=== PATIENT | male | born 1935 | race Caucasian/White ===

== ENCOUNTER → 2019-10-14 09:14 | Outpatient (BNVA) | payer MEDICARE, SELFPAY | PROVIDERS: Family Provider Family Medicine; PCP Family Medicine; Visit Provider Family Medicine | DX: Z01.89 Encounter for other specified special examinations (principal) | CPT/HCPCS: 36415; 85025 ==

== ENCOUNTER 2019-11-02 10:25 | Outpatient (CLI) | payer MEDICARE, SELFPAY | END 2019-11-02 10:26 | disposition home or self-care (01) | LOC: ONCMED 10:30 | PROVIDERS: Family Provider Family Medicine; PCP Family Medicine; Visit Provider Internal Medicine Hematology & Oncology | DX: D69.6 Thrombocytopenia, unspecified (principal); D61.818 Other pancytopenia | CPT/HCPCS: G0463 ==

== ENCOUNTER 2019-12-09 10:55 | Outpatient (CLI) | payer MEDICARE, SELFPAY ==
[2019-12-09 11:46] LABS: Basophils % 0.7 %; Eosinophils # 0.1 10^3/uL (0.0-0.8); Eosinophils % 2.6 %; Hematocrit 43.6 % (42.0-52.0); Hemoglobin 13.2 g/dL (11.7-16.6); Lymphocytes # 1.2 10^3/uL (0.8-4.8); Lymphocytes % 25.5 %; Mean Corpuscular HGB Conc 30.3 g/dL (30.0-36.0); Mean Corpuscular Hemoglobin 27.7 pg (28.0-34.0); Mean Corpuscular Volume 91.4 fL (80-94); Mean Platelet Volume 12.3 fL (7.4-10.4); Monocytes # 0.5 10^3/uL (0.2-0.9); Monocytes % 11.1 %; Neutrophils # 2.7 10^3/uL (1.8-7.7); Neutrophils % 59.9 %; Nucleated Red Blood Cells % 0 %; Platelet Count 80 10^3/cmm (130-400); Red Blood Count 4.77 10^6/uL (4.1-5.3); Red Cell Distribution Width 14.1 % (12.1-15.1); White Blood Count 4.6 10^3/uL (4.0-10.0)
--- NOTE | 2019-12-09 13:43 | ONC FU_ITS ---
Dr. Hooker follow up note Patient: Ministerio Dukes Unit #: [id number]: 1935 Dicatated By: Patsy Hooker M.D.Date of Visit:Dec 09, 2019 Onc Med Follow-up/Prog Note History of Present Illness: Mr. Ministerio Dukes, is a 83-year-old gentleman with recent history of thrombocytopenia his CBC from April 21 to showed white blood count 3.9, platelet count was not performed because of significant clumping noticed but manual count was more than 30,000 hemoglobin was 13.7 hematocrit 42.4 MCV 87.1, B12 903, folate 21.5, TIA was negative Patient denies any history of petechiae but old healing ecchymosis involving upper extremities. No history of nosebleed, no history of melena or hematochezia, no hemoptysis or hematemesis. No jaundice. Patient denies alcohol use, used to drink but quit 15 years ago, denies smoking. Abdominal sonogram done on 06/22/2019 showed no splenomegaly next Copper level within normal limits, folic acid 13.7, B12 716, TIA negative Came for follow-up, denies any specific complaints, denies any melena hematochezia denies any nausea vomiting, denies any petechiae or ecchymosis denies any abdominal fullness, denies any lymphadenopathy denies any night sweats or recurrent fever. Medications: Lisinopril 1 Tablet (of 10 mg) Oral daily, Lovastatin 1 Tablet (of 10 mg) Oral daily, Magnesium 1 Capsule (of 400 mg) Oral daily, metFORMIN HCl 2 Tablet (of 500 mg) Oral b.i.d., Multivitamin Adult 1 Tablet Oral daily, Verapamil HCl ER 1 Tablet (of 240 mg) Tablet, controlled release Oral daily, vision 1 Capsule daily Allergies: No Known Allergies. Review of Systems: Constitutional - Appetite is good and weight is stable. No fever, chills, hot flashes, or night sweats. Energy level is good, ENMT - No sinus congestion/drainage. No mouth sores. No sore throat or difficulty swallowing, Hematologic/Lymphatic - Pt reports easy bruising/bleeding, Respiratory - No shortness of breath. No cough. No pleuritic pain or hemoptysis, Cardiovascular - No angina pain. No palpitations, Gastrointestinal - No nausea or vomiting. No heartburn or acid reflux. No diarrhea or constipation. No blood in the stool or black stools, Genitourinary (M) - No dysuria or hematuria. No urinary frequency. No urgency or incontinence, Musculoskeletal - No joint or bone pain, Neurologic - No headache or dizziness. No numbness/paresthesias or other focal neurologic symptoms, Psychiatric - No anxiety or depression. No insomnia. Vital Signs: Performed on Dec 09, 2019 12:38 Height - 69.00 in Weight - 207.8 lbs (LOW) BSA - 2.10 sq.m BMI - 30.69 (HIGH) Temperature - 98.0 F (LOW) Pulse - 74 /min Respiration - 17 /min BP - 116/68 mm(hg) O2 Sat - 94 % (LOW) Pain - 0 Performance Status: 0 - Fully active, able to carry on all predisease activities without restrictions. (ECOG) Physical Examination: ENMT - No oral exudates, ulcers, masses, thrush or mucositis. Oropharynx clear. Tongue normal, Respiratory - Lungs are clear to auscultation without rhonchi or wheezing, Cardiovascular - Regular rate and rhythm of heart, Abdomen - Non-tender, non-distended, Good bowel sounds. No guarding or rebound tenderness. No pulsatile masses, Extremities - no edema. Lab/Imaging: Test performed on Oct 14, 2019 09:14 WBC 4.5 10^9/L RBC 4.82 10^12/L HGB 13.6 g/dL HCT 41.4 % MCV 85.9 fl MCH 28.3 pg MCHC 33.0 g/dL RDW 16.1 % Platelet Count 65 10^9/L MPV 9.7 fL Neutrophils (Gran) 2.9 10^9/L Lymphocytes 1.3 10^9/L Monocytes 0.3 10^9/L Manual Lymphocytes 28.8 % Manual Monocytes 6.9 % Test performed on Sep 09, 2019 09:51 Neutrophil % 70.9 % Lymphocyte % 23.1 % Monocyte % 6.0 % Test performed on Jul 27, 2019 09:40 Folate, Serum 13.7 ng/mL Vitamin B12 716 pg/mL TIA NEGATIVE TIA IFA is a first line screen for detecting the presence of up to approximately 150 autoantibodies in various autoimmune diseases. A negative TIA IFA result suggests an TIA-associated autoimmune disease is not present at this time, but is not definitive. If there is high clinical suspicion for Sjogren's syndrome, testing for anti-SS-A/Ro antibody should be considered. Anti-Jessy-1 antibody should be considered for clinically suspected inflammatory myopathies. AC-0: Negative International Consensus on TIA Patterns (https://doi.org/10.1515/lyeb-7616-8580) For additional information, please refer to http://education.[employer]/faq/QIB443 (This link is being provided for informational/ educational purposes only.) THIS TEST WAS PERFORMED AT: [email or web address] [facility] [address] [place] [address] MADELAINE FLORES DO,MPH Test performed on Jul 23, 2019 09:10 Eosinophils 0.1 10 3/cmm Basophils 0.0 10 3/cmm Eosinophil % 2.7 % Basophils % 0.5 % Impression: Mild pancytopenia with mild to moderate thrombocytopenia, etiology unclear, could be multifactorial including medication induced especially TONY inhibitor e.g. lisinopril, considering his age underlying myelodysplasia cannot be ruled out. Or low-grade ITP. US Abdomen Done on 07/23/2019 Showed No Splenomegaly, Stable Septated Liver Cyst. Plan: Discussed with patient regarding his labs white blood count 4.6 Imodium 13.2 crit 42.6 platelets 80,000 compared to 65,000 on 10/14/2019 Clinically, patient is doing well with no signs symptoms suggestive gross bleeding, his follow-up lab shows normal hemoglobin and resolution of leukopenia but persistent, stable moderate thrombocytopenia now with some improvement. We'll continue to monitor he will return to clinic in 2 months with CBC and also check serum protein electrophoresis. Signed By: Patsy Hooker M.D. <<Signature on File>>
== END 2019-12-09 10:56 | disposition home or self-care (01) ==
LOC: ONCMED 10:59
PROVIDERS: Family Provider Family Medicine; PCP Family Medicine; Visit Provider Internal Medicine Hematology & Oncology
DX: D69.6 Thrombocytopenia, unspecified (principal); Z79.84 Long term (current) use of oral hypoglycemic drugs
CPT/HCPCS: 85025; G0463

== ENCOUNTER → 2020-02-29 09:16 | Outpatient (BNVA) | payer MEDICARE, SELFPAY | PROVIDERS: Family Provider Family Medicine; PCP Family Medicine; Visit Provider Internal Medicine Hematology & Oncology | DX: D61.818 Other pancytopenia (principal) | CPT/HCPCS: 85025 ==

== ENCOUNTER 2020-03-02 07:58 | Outpatient (CLI) | payer MEDICARE, SELFPAY ==
--- NOTE | 2020-03-02 14:55 | ONC FU_ITS ---
Dr. Hooker follow up note Patient: Ministerio Dukes Unit #: [id number]: 1935 Dicatated By: Patsy Hooker M.D.Date of Visit:Mar 02, 2020 Onc Med Follow-up/Prog Note History of Present Illness: Mr. Ministerio Dukes, is a 84-year-old gentleman with recent history of thrombocytopenia his CBC from April 21 to showed white blood count 3.9, platelet count was not performed because of significant clumping noticed but manual count was more than 30,000 hemoglobin was 13.7 hematocrit 42.4 MCV 87.1, B12 903, folate 21.5, TIA was negative Patient denies any history of petechiae but old healing ecchymosis involving upper extremities. No history of nosebleed, no history of melena or hematochezia, no hemoptysis or hematemesis. No jaundice. Patient denies alcohol use, used to drink but quit 15 years ago, denies smoking. Abdominal sonogram done on 06/22/2019 showed no splenomegaly next Copper level within normal limits, folic acid 13.7, B12 716, TIA negative Came for follow-up, denies any specific complaints, no nausea or vomiting, no diarrhea constipation, no nosebleed or gum bleed, no melena or hematochezia, no petechia but old healing ecchymosis involving upper extremities mostly due to trauma. Otherwise no evidence of gross bleeding Medications: Lisinopril 1 Tablet (of 10 mg) Oral daily, Lovastatin 1 Tablet (of 10 mg) Oral daily, Magnesium 1 Capsule (of 400 mg) Oral daily, metFORMIN HCl 2 Tablet (of 500 mg) Oral b.i.d., Multivitamin Adult 1 Tablet Oral daily, Verapamil HCl ER 1 Tablet (of 240 mg) Tablet, controlled release Oral daily, vision 1 Capsule daily Allergies: No Known Allergies. Review of Systems: Constitutional - Appetite is good and weight is stable. No fever, chills, hot flashes, or night sweats. Energy level is very good, ENMT - No sinus congestion/drainage. No mouth sores. No sore throat or difficulty swallowing, Hematologic/Lymphatic - Pt reports easy bruising, Respiratory - No shortness of breath. No cough. No pleuritic pain or hemoptysis, Cardiovascular - No angina pain. No palpitations, Gastrointestinal - No nausea or vomiting. No heartburn or acid reflux. No diarrhea or constipation. No blood in the stool or black stools, Genitourinary (M) - No dysuria or hematuria. No urinary frequency. No urgency or incontinence, Musculoskeletal - No joint or bone pain, Neurologic - No headache or dizziness. No numbness/paresthesias or other focal neurologic symptoms, Psychiatric - No anxiety or depression. No insomnia. Vital Signs: Performed on Mar 02, 2020 08:08 Height - 69.00 in Weight - 205.6 lbs (LOW) BSA - 2.09 sq.m BMI - 30.36 (HIGH) Temperature - 98.0 F (LOW) Pulse - 16 /min (LOW) Respiration - 16 /min BP - 105/63 mm(hg) O2 Sat - 95 % (LOW) Pain - 0 Performance Status: 0 - Fully active, able to carry on all predisease activities without restrictions. (ECOG) Physical Examination: ENMT - no mouth sores, no thrush, no jaundice, Respiratory - Lungs are clear, Cardiovascular - Regular rate and rhythm of heart, Abdomen - soft, bowel sounds present, Extremities - no visible edema. Lab/Imaging: Test performed on Feb 29, 2020 09:16 WBC 3.4 10^9/L RBC 5.04 10^12/L HGB 13.6 g/dL HCT 41.1 % MCV 81.5 fl MCH 27.0 pg MCHC 33.2 g/dL RDW 17.3 % Platelet Count 68 10^9/L MPV 10.3 fL Neutrophils (Gran) 2.4 10^9/L Lymphocytes 0.8 10^9/L Monocytes 0.1 10^9/L Manual Lymphocytes 24.8 % Manual Monocytes 3.7 % Test performed on Dec 09, 2019 11:15 Eosinophils 0.1 10 3/uL Basophils 0.0 10 3/uL Neutrophil % 59.9 % Lymphocyte % 25.5 % Monocyte % 11.1 % Eosinophil % 2.6 % Basophils % 0.7 % Impression: Mild pancytopenia with mild to moderate thrombocytopenia, etiology unclear, could be multifactorial including medication induced especially TONY inhibitor e.g. lisinopril, considering his age underlying myelodysplasia cannot be ruled out. Or low-grade ITP. US Abdomen Done on 07/23/2019 Showed No Splenomegaly, Stable Septated Liver Cyst. Plan: Discussed with patient regarding his labs white blood count 3.4 hemoglobin 13.6 crit 41.1 platelets 68,000, serum protein electrophoresis is pending Clinically, patient is doing well with no evidence of gross bleeding to check his follow-up blood counts shows mild leukopenia with mild/moderate chemotherapy but normal hemoglobin. Discussed with patient regarding the role of bone marrow evaluation, patient prefer observation as there is no evidence of gross bleeding and hemoglobin is stable and platelets level is fluctuating. In that case we'll see him back in 3 months with CBC and Signed By: Patsy Hooker M.D. <<Signature on File>>
== END 2020-03-02 07:59 | disposition home or self-care (01) ==
LOC: ONCMED 08:01
PROVIDERS: Family Provider Family Medicine; PCP Family Medicine; Visit Provider Internal Medicine Hematology & Oncology
DX: D61.818 Other pancytopenia (principal); D69.6 Thrombocytopenia, unspecified; I10 Essential (primary) hypertension; E11.42 Type 2 diabetes mellitus with diabetic polyneuropathy; H40.9 Unspecified glaucoma; H35.30 Unspecified macular degeneration
CPT/HCPCS: G0463

== ENCOUNTER → 2020-07-04 09:17 | Outpatient (BNVA) | payer MEDICARE, SELFPAY | PROVIDERS: Family Provider Family Medicine; PCP Family Medicine; Visit Provider Internal Medicine Hematology & Oncology | DX: D61.818 Other pancytopenia (principal) | CPT/HCPCS: 85025 ==

== ENCOUNTER → 2020-07-25 08:38 | Outpatient (BNVA) | payer MEDICARE, SELFPAY | PROVIDERS: Family Provider Family Medicine; PCP Family Medicine; Visit Provider Nurse Practitioner Family | DX: D69.6 Thrombocytopenia, unspecified (principal) | CPT/HCPCS: 85025 ==

== ENCOUNTER 2020-07-27 12:37 | Outpatient (CLI) | payer MEDICARE, SELFPAY ==
--- NOTE | 2020-07-27 13:15 | ONC FU_ITS ---
Dr. Hooker follow up note Patient: Ministerio Dukes Unit #: [id number]: 1935 Dicatated By: Patsy Hooker M.D.Date of Visit:Jul 27, 2020 Onc Med Follow-up/Prog Note History of Present Illness: Mr. Ministerio Dukes, is a 84-year-old gentleman with recent history of thrombocytopenia his CBC from April 21 to showed white blood count 3.9, platelet count was not performed because of significant clumping noticed but manual count was more than 30,000 hemoglobin was 13.7 hematocrit 42.4 MCV 87.1, B12 903, folate 21.5, TIA was negative Patient denies any history of petechiae but old healing ecchymosis involving upper extremities. No history of nosebleed, no history of melena or hematochezia, no hemoptysis or hematemesis. No jaundice. Patient denies alcohol use, used to drink but quit 15 years ago, denies smoking. Abdominal sonogram done on 06/22/2019 showed no splenomegaly next Copper level within normal limits, folic acid 13.7, B12 716, TIA negative Came for follow-up, denies any specific complaints, no fever chills, no nausea or vomiting, no diarrhea or constipation, no melena or hematochezia no nosebleeds or gum bleed no petechia or ecchymosis no hematuria. Medications: Lisinopril 1 Tablet (of 10 mg) Oral daily, Lovastatin 1 Tablet (of 10 mg) Oral daily, Magnesium 1 Capsule (of 400 mg) Oral daily, metFORMIN HCl 2 Tablet (of 500 mg) Oral b.i.d., Multivitamin Adult 1 Tablet Oral daily, Verapamil HCl ER 1 Tablet (of 240 mg) Tablet, controlled release Oral daily, vision 1 Capsule daily Allergies: No Known Allergies. Review of Systems: Constitutional - Appetite is good and weight is stable. No fever, chills, hot flashes, or night sweats. Energy level is very good, ENMT - No sinus congestion/drainage. No mouth sores. No sore throat or difficulty swallowing, Hematologic/Lymphatic - Pt reports easy bruising, Respiratory - No shortness of breath. No cough. No pleuritic pain or hemoptysis, Cardiovascular - No angina pain. No palpitations, Gastrointestinal - No nausea or vomiting. No heartburn or acid reflux. No diarrhea or constipation. No blood in the stool or black stools, Genitourinary (M) - No dysuria or hematuria. No urinary frequency. No urgency or incontinence, Musculoskeletal - No joint or bone pain, Neurologic - No headache or dizziness. No numbness/paresthesias or other focal neurologic symptoms, Psychiatric - No anxiety or depression. No insomnia. Vital Signs: Performed on Jul 27, 2020 12:53 Height - 69.00 in Weight - 207.2 lbs (HIGH) BSA - 2.10 sq.m BMI - 30.60 (HIGH) Temperature - 98.5 F Pulse - 78 /min Respiration - 19 /min BP - 136/68 mm(hg) O2 Sat - 97 % Pain - 0 Performance Status: 0 - Fully active, able to carry on all predisease activities without restrictions. (ECOG) Physical Examination: ENMT - No mouth sores, no thrush, noJaundice, Respiratory - Lungs are clear to auscultation, Cardiovascular - Regular rate and rhythm of heart, Abdomen - Soft, bowel sounds present, Extremities - No visible edema. Lab/Imaging: Test performed on Jul 04, 2020 09:17 WBC 4.4 10^9/L RBC 4.98 10^12/L HGB 14.8 g/dL HCT 43.6 % MCV 87.5 fl MCH 29.7 pg MCHC 33.9 g/dL RDW 14.9 % Platelet Count 72 10^9/L MPV 9.4 fL Lymphocytes 1.0956 10^9/L Monocytes 0.2288 10^9/L Test performed on Feb 29, 2020 09:16 Neutrophils (Gran) 2.4 10^9/L Manual Lymphocytes 24.8 % Manual Monocytes 3.7 % Impression: Mild pancytopenia with mild to moderate thrombocytopenia, etiology unclear, could be multifactorial including medication induced especially TONY inhibitor e.g. lisinopril, considering his age underlying myelodysplasia cannot be ruled out. Or low-grade ITP. US Abdomen Done on 07/23/2019 Showed No Splenomegaly, Stable Septated Liver Cyst. Plan: Discussed with patient regarding his labs white blood count 4.3 hemoglobin 14.7 hematocrit 44.3 platelets 72,000 compared to 72,000 on July 04, 2020 and 68,000 on February 29, 2020 Clinically, patient is doing well with no new signs symptoms no evidence of gross bleeding his follow-up labs shows persistent mild/moderate isolated thrombocytopenia with normal hemoglobin and white blood count., Etiology still unclear, considering his age could be due to underlying myelodysplasia or mild ITP, discussed about bone marrow evaluation, again today but patient and his would rather prefer observation unless platelet count started going down further or any evidence of gross bleeding. Patient return to clinic in 4 months with CBC and will also consider manual count Signed By: Patsy Hooker M.D. <<Signature on File>>
== END 2020-07-27 12:38 | disposition home or self-care (01) ==
LOC: ONCMED 12:41
PROVIDERS: PCP Family Medicine; Visit Provider Internal Medicine Hematology & Oncology
DX: D61.818 Other pancytopenia (principal); D69.6 Thrombocytopenia, unspecified
CPT/HCPCS: G0463

== ENCOUNTER → 2020-11-23 10:26 | Outpatient (BNVA) | payer MEDICARE, SELFPAY | PROVIDERS: PCP Family Medicine; Visit Provider Internal Medicine Hematology & Oncology | DX: D69.6 Thrombocytopenia, unspecified (principal) | CPT/HCPCS: 85025 ==

== ENCOUNTER 2020-11-24 12:17 | Outpatient (CLI) | payer MEDICARE, SELFPAY ==
--- NOTE | 2020-11-24 15:07 | ONC FU_ITS ---
Dr. Hooker follow up note Patient: Ministerio Dukes Unit #: [id number]: 1935 Dicatated By: Patsy Hooker M.D.Date of Visit:Nov 24, 2020 Onc Med Follow-up/Prog Note History of Present Illness: Mr. Ministerio Dukes, is a 84-year-old gentleman with recent history of thrombocytopenia his CBC from April 21 to showed white blood count 3.9, platelet count was not performed because of significant clumping noticed but manual count was more than 30,000 hemoglobin was 13.7 hematocrit 42.4 MCV 87.1, B12 903, folate 21.5, TIA was negative Patient denies any history of petechiae but old healing ecchymosis involving upper extremities. No history of nosebleed, no history of melena or hematochezia, no hemoptysis or hematemesis. No jaundice. Patient denies alcohol use, used to drink but quit 15 years ago, denies smoking. Abdominal sonogram done on 06/22/2019 showed no splenomegaly next Copper level within normal limits, folic acid 13.7, B12 716, TIA negative Came for follow-up, denies any specific complaints, except recovering from flulike symptoms, denies any Covid infection or testing, no fever chills, no nausea or vomiting, no diarrhea or constipation, no melena or hematochezia, no hemoptysis or hematemesis, no petechia or ecchymosis, no night sweats, no weight loss, no recurrent infections. No peripheral lymphadenopathy or abdominal fullness Medications: Lisinopril 1 Tablet (of 10 mg) Oral daily, Lovastatin 1 Tablet (of 10 mg) Oral daily, Magnesium 1 Capsule (of 400 mg) Oral daily, metFORMIN HCl 2 Tablet (of 500 mg) Oral b.i.d., Multivitamin Adult 1 Tablet Oral daily, Verapamil HCl ER 1 Tablet (of 240 mg) Tablet, controlled release Oral daily, vision 1 Capsule daily Allergies: No Known Allergies. Review of Systems: Review of Systems is not available for this patient. Vital Signs: Performed on Nov 24, 2020 12:40 Height - 69.00 in Weight - 203 lbs (LOW) BSA - 2.08 sq.m BMI - 29.98 Temperature - 97.7 F (LOW) Pulse - 77 /min Respiration - 17 /min BP - 125/71 mm(hg) O2 Sat - 97 % Pain - 0 Performance Status: 0 - Fully active, able to carry on all predisease activities without restrictions. (ECOG) Physical Examination: ENMT - No mouth sores, no thrush, no jaundice, Respiratory - Lungs are clear to auscultation, Cardiovascular - Regular rate and rhythm of heart, Abdomen - Soft, Bowel sounds present, Extremities - No visible edema. Lab/Imaging: Test performed on Nov 23, 2020 10:26 WBC 4.5 10^9/L RBC 4.93 10^12/L HGB 14.9 g/dL HCT 44.0 % MCV 89.2 fl MCH 30.2 pg MCHC 33.8 g/dL RDW 14.7 % Platelet Count 79 10^9/L MPV 8.9 fL Neutrophils (Gran) 1.0 10^9/L Lymphocytes 0.4 10^9/L Manual Lymphocytes 22.6 % Manual Monocytes 8.5 % Manual Eosinophils 3.1 % Test performed on Jul 25, 2020 16:14 Monocytes 0.2 10^9/L Impression: Mild pancytopenia with mild to moderate thrombocytopenia, etiology unclear, could be multifactorial including medication induced especially TONY inhibitor e.g. lisinopril, considering his age underlying myelodysplasia cannot be ruled out. Or low-grade ITP. US Abdomen Done on 07/23/2019 Showed No Splenomegaly, Stable Septated Liver Cyst. Plan: Discussed with patient regarding his labs white blood count 4.5 hemoglobin 14.9 hematocrit 44 platelets 79,000 ANC 1000, compared to 2800 on July 25, 2020, lymphocytes 400 Clinically, patient is doing well with no new signs symptoms except now recovering from flulike symptoms. His follow-up labs shows persistent mild/moderate thrombocytopenia but stable, white blood count in normal range but drop in absolute neutrophil count as well as lymphocytes, etiology unclear could be due to recent flulike symptoms, now patient is not symptomatic or no sign of infection., Will monitor him and this time he will return to clinic in 1 month with CBC with differential with special attention to neutrophil count. Patient was advised in case there is a fever or any sign of infection he need to call us otherwise return to clinic in 1 month as mentioned above. Signed By: Patsy Hooker M.D. <<Signature on File>>
== END 2020-11-24 12:18 | disposition home or self-care (01) ==
LOC: ONCMED 12:21
PROVIDERS: PCP Family Medicine; Visit Provider Internal Medicine Hematology & Oncology
DX: D69.6 Thrombocytopenia, unspecified (principal); D61.818 Other pancytopenia; D70.9 Neutropenia, unspecified
CPT/HCPCS: G0463

== ENCOUNTER → 2020-12-20 08:57 | Outpatient (BNVA) | payer MEDICARE, SELFPAY | PROVIDERS: PCP Family Medicine; Visit Provider Internal Medicine Hematology & Oncology | DX: D69.6 Thrombocytopenia, unspecified (principal) | CPT/HCPCS: 85007; 85027 ==

== ENCOUNTER 2020-12-22 09:52 | Outpatient (CLI) | payer MEDICARE, SELFPAY ==
--- NOTE | 2021-01-02 21:21 | ONC FU_ITS ---
[facility] Patient Note Patient: Ministerio Dukes Unit #: [id number]: 1935 Dictated By: Susu De LeonDate of Visit: Dec 22, 2020 Onc MED Follow-Up/Prog Note Chief Complaint: Mild pancytopenia History of Present Illness: Mr. Dukes is an 85-year-old gentleman with a history of thrombocytopenia. His CBC from April 21, 2019 showed a white blood count of 3.9, platelet count was not performed because of significant clumping noticed but manual count was more than 30,000 and his hemoglobin was 13.7 hematocrit 42.4 MCV 87.1, B12 903, folate 21.5, TIA was negative. He denies any history of petechiae but old healing ecchymosis involving upper extremities. No history of nosebleed, no history of melena or hematochezia, no hemoptysis or hematemesis. No jaundice. Patient denies alcohol use, used to drink but quit 15 years ago, denies smoking. Abdominal sonogram done on 06/22/2019 showed no splenomegaly. His followup labs included Copper level was within normal limits, folic acid 13.7, B12 716, TIA negative. Mr Dukes is following with Dr Hooker for the pancytopenia. He has been asymptomatic and has not had any weight loss, night sweats, nausea or vomiting. He denies any evidence of bleeding such as melena or hematochezia, hemoptysis or hematemesis. He denies petechia or ecchymosis. No peripheral lymphadenopathy or abdominal fullness. He has remained on observation. His last labs on November 23, 2020 reported a platelet count of 79,000 his hemoglobin was 14.9 and WBC was 4.5. His absolute neutrophil count at that time was 1000. His lymphocytes were reported at 22.6%. Mr. Dukes is here today for follow-up and lab review from his labs from December 20, 2020. He reports overall he is doing great . He has no complaints. He denies any new concerns. He denies any fever or chills. He has had no signs of infection. He denies cough or hemoptysis. He denies any weight loss. He states his appetite is good and his energy is fair. He denies any shortness of breath orthopnea. He denies any chest pain or palpitations. He denies any abdominal pain, diarrhea or constipation. He states his urinary patterns are normal for him. He has had no hematuria. He denies any bruising. He states that he gets occasional bruise but no worse than what it always has been. He has had no pepito bleeding. He denies any headaches or vision changes. He has had no TIA type symptoms. His ECOG is 0. Past Medical History: Glaucoma Hypertension Macular degeneration Peripheral neuropathy Type II diabetes Past Surgical History: Cholecystectomy Allergies: No Known Allergies. Medications: Lisinopril 1 Tablet (of 10 mg) Oral daily Lovastatin 1 Tablet (of 10 mg) Oral daily Magnesium 1 Capsule (of 400 mg) Oral daily metFORMIN HCl 2 Tablet (of 500 mg) Oral b.i.d. Multivitamin Adult 1 Tablet Oral daily Verapamil HCl ER 1 Tablet (of 240 mg) Tablet, controlled release Oral daily vision 1 Capsule daily Family History: Mr. Dukes's mother at age 80: type II diabetes. Mr. Dukes's father at age 72: alcoholic cirrhosis. Mr. Dukes has 1 sister who is alive: uterine cancer. Social History: Mr. Dukes is and he is retired. Mr. Dukes quit smoking 26 years ago but had smoked 0.5 packs/day for 40 years. He has no history of drinking. Mr. Dukes reports the following support systems: lives with spouse, significant other, family, or friends, lives in own house, supportive family/friends willing to assist with needs, and adequate transportation available for expected visits. His diet consists of regular meals. He indicates his activity level as: regular exercise. Vital Signs: Performed on Dec 22, 2020 10:02 Height - 69.00 in Weight - 204.2 lbs (HIGH) BSA - 2.08 sq.m BMI - 30.16 (HIGH) Temperature - 97.8 F (LOW) Pulse - 70 /min Respiration - 18 /min BP - 147/71 mm(hg) (HIGH) O2 Sat - 96 % Pain - 0,0 - Fully active, able to carry on all predisease activities without restrictions. (ECOG) Physical Examination: Constitutional Alert, oriented, no acute distress. Skin pink, warm and dry. Head Normocephalic; atraumatic. Eyes Conjunctivae and sclerae are clear and without icterus. Pupils are reactive and equal. Neck Supple without masses or thyromegaly. No jugular venous distension. Hematologic/Lymphatic No petechiae or purpura. No tender or palpable lymph nodes in the cervical or supraclavicular areas. Respiratory Lungs are clear to auscultation without rhonchi or wheezing. Cardiovascular Regular rate and rhythm of heart without murmurs,clicks, gallops or rubs. Abdomen Non-tender, non-distended, no masses or ascites. Back/Spine Non-tender to palpation. Extremities No visible deformities, no cyanosis, clubbing or edema. Musculoskeletal No tenderness or swelling, normal range of motion without obvious weakness. Integumentary No rashes or lesions. Neurologic No sensory or motor deficits, normal cerebellar function, normal gait. Psychiatric Alert and oriented times three. Coherent speech. Verbalizes understanding of our discussions today. Laboratory:Test performed on Dec 20, 2020 08:57 WBC 3.8 10^9/L RBC 4.98 10^12/L HGB 15.1 g/dL HCT 46.0 % MCV 92.4 fl MCH 30.3 pg MCHC 32.8 g/dL RDW 13.7 % Platelet Count 60 10^9/L MPV 12.9 fL Neutrophils (Gran) 2.3 10^9/L Lymphocytes 0.0 10^9/L Monocytes 0.0 10^9/L Eosinophils 0.0 10^9/L Basophils 0.0 10^9/L Manual Lymphocytes 31 % Manual Monocytes 6.0 % Manual Eosinophils 1 % Manual Basophils 0.0 % Impression: Mild pancytopenia with mild to moderate thrombocytopenia, etiology unclear, could be multifactorial including medication induced especially TONY inhibitor e.g. lisinopril, considering his age underlying myelodysplasia cannot be ruled out. Or low-grade ITP. US Abdomen Done on 07/23/2019 Showed No Splenomegaly, Stable Septated Liver Cyst. Plan: PROBLEMS ADDRESSED TODAY 1. Mild pancytopenia with moderate thrombocytopenia and neutropenia A. Labs from December 20, 2020 were reviewed in detail and discussed with Mr. Dukes and a copy was given to him. WBC 3.8, hemoglobin 15.1, platelets 60,000 ANC is 2300. His lymphocytes were reported at 31%. He is afebrile and his weight is stable at 204. B. He continues on observation. He has had no symptoms of infection or recurrent fever, chills. He did have recent flulike symptoms at his last visit but that has resolved. C. We have discussed his platelet count of 60,000. It was 68,000 in February 2020. He has had no bleeding or worsening of bruising. 2. Follow-up plan A. We will plan to see him back in 1 month with CBC CMP B. Mr. Dukes has been instructed to call us if he has any worsening of the bruising, any bleeding, signs of infection such as fever, chills, productive cough, abnormal nasal discharge, urinary frequency or burning or anything that makes him feel that he is getting an infection. His neutropenia has improved from his last check in October 2020 at which time was 1000???it is 2300 today. C. Mr. Dukes was instructed to contact us in interim should questions or problems arise. Signed By: Susu De Leon-, AOCNP Patsy Hooker MD <<Signature on File>>
== END 2020-12-22 09:53 | disposition home or self-care (01) ==
LOC: ONCMED 09:55
PROVIDERS: PCP Family Medicine; Visit Provider Nurse Practitioner
DX: D61.818 Other pancytopenia (principal); D69.6 Thrombocytopenia, unspecified; D70.9 Neutropenia, unspecified
CPT/HCPCS: 99214

== ENCOUNTER → 2021-01-23 09:10 | Outpatient (BNVA) | payer MEDICARE, SELFPAY | PROVIDERS: PCP Family Medicine; Visit Provider Nurse Practitioner | DX: D61.818 Other pancytopenia (principal); D69.6 Thrombocytopenia, unspecified | CPT/HCPCS: 80053; 85025 ==

== ENCOUNTER 2021-01-25 08:48 | Outpatient (CLI) | payer MEDICARE, SELFPAY ==
--- NOTE | 2021-01-25 10:29 | ONC FU_ITS ---
Dr. Hooker follow up note Patient: Ministerio Dukes Unit #: [id number]: 1935 Dicatated By: Patsy Hooker M.D.Date of Visit:Jan 25, 2021 Onc Med Follow-up/Prog Note History of Present Illness: Mr. Dukes is an 85-year-old gentleman with a history of thrombocytopenia. His CBC from April 21, 2019 showed a white blood count of 3.9, platelet count was not performed because of significant clumping noticed but manual count was more than 30,000 and his hemoglobin was 13.7 hematocrit 42.4 MCV 87.1, B12 903, folate 21.5, TIA was negative. He denies any history of petechiae but old healing ecchymosis involving upper extremities. No history of nosebleed, no history of melena or hematochezia, no hemoptysis or hematemesis. No jaundice. Patient denies alcohol use, used to drink but quit 15 years ago, denies smoking. Abdominal sonogram done on 06/22/2019 showed no splenomegaly. His followup labs included Copper level was within normal limits, folic acid 13.7, B12 716, TIA negative. Mr Dukes is following with Dr Hooker for the pancytopenia. He has been asymptomatic and has not had any weight loss, night sweats, nausea or vomiting. He denies any evidence of bleeding such as melena or hematochezia, hemoptysis or hematemesis. He denies petechia or ecchymosis. No peripheral lymphadenopathy or abdominal fullness. He has remained on observation. His last labs on November 23, 2020 reported a platelet count of 79,000 his hemoglobin was 14.9 and WBC was 4.5. His absolute neutrophil count at that time was 1000. His lymphocytes were reported at 22.6%. Came for follow-up, denies any specific complaints, no fever chills, no nausea or vomiting, no diarrhea or constipation, no melena or hematochezia, no nosebleed or gum bleeding, no dysuria or hematuria, no petechia or ecchymosis Medications: Lisinopril 1 Tablet (of 10 mg) Oral daily, Lovastatin 1 Tablet (of 10 mg) Oral daily, Magnesium 1 Capsule (of 400 mg) Oral daily, metFORMIN HCl 2 Tablet (of 500 mg) Oral b.i.d., Multivitamin Adult 1 Tablet Oral daily, Verapamil HCl ER 1 Tablet (of 240 mg) Tablet, controlled release Oral daily, vision 1 Capsule daily Allergies: No Known Allergies. Review of Systems: Review of Systems is not available for this patient. Vital Signs: Performed on Jan 25, 2021 09:56 Height - 69.00 in Weight - 202.0 lbs (LOW) BSA - 2.07 sq.m BMI - 29.83 Temperature - 97.5 F (LOW) Pulse - 75 /min Respiration - 18 /min BP - 118/68 mm(hg) O2 Sat - 94 % (LOW) Pain - 0 Performance Status: 0 - Fully active, able to carry on all predisease activities without restrictions. (ECOG) Physical Examination: ENMT - No mouth sores, no thrush, no jaundice, Respiratory - Lungs are clear to auscultation, Cardiovascular - Regular rate and rhythm of heart, Abdomen - Soft, bowel sounds present, Extremities - No visible edema. Lab/Imaging: Test performed on Jan 23, 2021 09:10 Glucose 297 mg/dL BUN 10 mg/dL Creatinine 0.8 mg/dL Cr Clearance (Est) 90.05 mL/min Sodium 137 mmol/L Potassium 4.9 mmol/L Chloride 98 mmol/L CO2 30 mmol/L Calcium 8.5 mg/dL Protein, Total 6.6 g/dL Albumin 4.0 g/dL Globulin 2.6 g/dL Bilirubin, Total 0.7 mg/dL Alkaline Phosphatase 93 IU/L AST (SGOT) 28 IU/L ALT (SGPT) 32 IU/L WBC 4.4 10^9/L RBC 4.93 10^12/L HGB 14.9 g/dL HCT 44.4 % MCV 90.1 fl MCH 30.2 pg MCHC 33.5 g/dL RDW 13.9 % Platelet Count 77 10^9/L MPV 9.4 fL Neutrophils (Gran) 3.0 10^9/L Lymphocytes 1.2 10^9/L Monocytes 0.2 10^9/L Manual Lymphocytes 28.1 % Manual Monocytes 4.5 % Test performed on Dec 20, 2020 08:57 Eosinophils 0.0 10^9/L Basophils 0.0 10^9/L Manual Eosinophils 1 % Manual Basophils 0.0 % Impression: Mild pancytopenia with mild to moderate thrombocytopenia, etiology unclear, could be multifactorial including medication induced especially TONY inhibitor e.g. lisinopril, considering his age underlying myelodysplasia cannot be ruled out. Or low-grade ITP. US Abdomen Done on 07/23/2019 Showed No Splenomegaly, Stable Septated Liver Cyst. Plan: Discussed with patient regarding his labs white blood count 4.4 hemoglobin 14.9 hematocrit 44.4 platelets 77,000 compared to 60,000 previously neutrophil count has improved to 3000 from 2300 previously Clinically, patient doing well with no new signs symptoms his follow-up labs shows mild neutropenia/leukopenia has resolved but persistent but improving mild/moderate thrombocytopenia with no evidence of gross bleeding, hemoglobin is normal range. Discussed with patient and regarding etiology of his persistent mild isolated thrombocytopenia which could be due to low grade ITP orMedications, considering his age underlying myelodysplasia cannot be ruled out, bone marrow evaluation may be helpful but patient and would prefer observation alone at this time. So he will return to clinic in 3 months with CBC Signed By: Patsy Hooker M.D. <<Signature on File>>
== END 2021-01-25 08:49 | disposition home or self-care (01) ==
PROVIDERS: PCP Family Medicine; Visit Provider Internal Medicine Hematology & Oncology
DX: D61.818 Other pancytopenia (principal); D69.6 Thrombocytopenia, unspecified; K76.0 Fatty (change of) liver, not elsewhere classified; Z79.899 Other long term (current) drug therapy
CPT/HCPCS: 99214

== ENCOUNTER → 2021-04-24 10:38 | Outpatient (BNVA) | payer MEDICARE, SELFPAY | PROVIDERS: PCP Family Medicine; Visit Provider Internal Medicine Hematology & Oncology | DX: D61.818 Other pancytopenia (principal); D69.6 Thrombocytopenia, unspecified | CPT/HCPCS: 85025 ==

== ENCOUNTER 2021-04-26 10:26 | Outpatient (CLI) | payer MEDICARE, SELFPAY ==
--- NOTE | 2021-04-26 11:31 | ONC FU_ITS ---
Dr. Hooker follow up note Patient: Ministerio Dukes Unit #: [id number]: 1935 Dicatated By: Patsy Hooker M.D.Date of Visit:Apr 26, 2021 Onc Med Follow-up/Prog Note History of Present Illness: Mr. Dukes is an 85-year-old gentleman with a history of thrombocytopenia. His CBC from April 21, 2019 showed a white blood count of 3.9, platelet count was not performed because of significant clumping noticed but manual count was more than 30,000 and his hemoglobin was 13.7 hematocrit 42.4 MCV 87.1, B12 903, folate 21.5, TIA was negative. He denies any history of petechiae but old healing ecchymosis involving upper extremities. No history of nosebleed, no history of melena or hematochezia, no hemoptysis or hematemesis. No jaundice. Patient denies alcohol use, used to drink but quit 15 years ago, denies smoking. Abdominal sonogram done on 06/22/2019 showed no splenomegaly. His followup labs included Copper level was within normal limits, folic acid 13.7, B12 716, TIA negative. He has been asymptomatic and has not had any weight loss, night sweats, nausea or vomiting. He denies any evidence of bleeding such as melena or hematochezia, hemoptysis or hematemesis. He denies petechia or ecchymosis. No peripheral lymphadenopathy or abdominal fullness. He has remained on observation. His last labs on November 23, 2020 reported a platelet count of 79,000 his hemoglobin was 14.9 and WBC was 4.5. His absolute neutrophil count at that time was 1000. His lymphocytes were reported at 22.6%. Came for follow-up, denies any specific complaints, no fever chills, no nausea or vomiting, no diarrhea or constipation, no night sweats, or weight loss or recurrent fever no petechia or ecchymosis, no nosebleed or gum bleed, no hematuria, Medications: Lisinopril 1 Tablet (of 10 mg) Oral daily, Lovastatin 1 Tablet (of 10 mg) Oral daily, Magnesium 1 Capsule (of 400 mg) Oral daily, metFORMIN HCl 2 Tablet (of 500 mg) Oral b.i.d., Multivitamin Adult 1 Tablet Oral daily, Verapamil HCl ER 1 Tablet (of 240 mg) Tablet, controlled release Oral daily, vision 1 Capsule daily Allergies: No Known Allergies. Review of Systems: Review of Systems is not available for this patient. Vital Signs: Performed on Apr 26, 2021 10:30 Height - 69.00 in Weight - 202.6 lbs (HIGH) BSA - 2.08 sq.m BMI - 29.92 Temperature - 98.0 F (LOW) Pulse - 73 /min Respiration - 18 /min BP - 112/68 mm(hg) O2 Sat - 98 % Pain - 0 Performance Status: 0 - Fully active, able to carry on all predisease activities without restrictions. (ECOG) Physical Examination: ENMT - No mouth sores, no thrush, no jaundice, Respiratory - Lungs are clear to auscultation, Cardiovascular - Regular rate and rhythm of heart, Abdomen - Soft, bowel sounds present, Extremities - No visible edema. Lab/Imaging: Test performed on Apr 24, 2021 10:38 WBC 4.8 10^3/uL RBC 4.80 10^6/uL HGB 14.3 g/dL HCT 43.4 % MCV 90.4 fl MCH 29.8 pg MCHC 33.0 g/dL RDW 14.0 % Platelet Count 72 10^3/uL MPV 8.8 fl Neutrophils 3.4 10^3/uL Lymphocytes 1.1 10^3/uL Monocytes 0.3 10^3/uL Neutrophil % 70.3 % Lymphocyte % 23.2 % Monocyte % 6.5 % Test performed on Jan 23, 2021 09:10 Glucose 297 mg/dL BUN 10 mg/dL Creatinine 0.8 mg/dL Cr Clearance (Est) 90.05 mL/min Sodium 137 mmol/L Potassium 4.9 mmol/L Chloride 98 mmol/L CO2 30 mmol/L Calcium 8.5 mg/dL Protein, Total 6.6 g/dL Albumin 4.0 g/dL Globulin 2.6 g/dL Bilirubin, Total 0.7 mg/dL Alkaline Phosphatase 93 IU/L AST (SGOT) 28 IU/L ALT (SGPT) 32 IU/L Manual Lymphocytes 28.1 % Manual Monocytes 4.5 % Test performed on Dec 20, 2020 08:57 Eosinophils 0.0 10^9/L Basophils 0.0 10^9/L Manual Eosinophils 1 % Manual Basophils 0.0 % Impression: Mild pancytopenia with mild to moderate thrombocytopenia, etiology unclear, could be multifactorial including medication induced especially TONY inhibitor e.g. lisinopril, considering his age underlying myelodysplasia cannot be ruled out. Or low-grade ITP. During follow-up his neutropenia/leukopenia/mild anemia resolved but with persistent mild/moderate but stable thrombocytopenia US Abdomen Done on 07/23/2019 Showed No Splenomegaly, Stable Septated Liver Cyst. Plan: Discussed with patient regarding his labs white blood count 4.8 hemoglobin 14.3 hematocrit 43.4 platelets 72,000 ANC 3400 Clinically, patient doing well with no new signs symptom no evidence of gross bleeding, his follow-up lab work-up shows persistent mild/moderate isolated thrombocytopenia but stable, will continue to monitor return to clinic in 3 months with CBC, patient was advised to call in case any evidence of gross bleeding Signed By: Patsy Hooker M.D. <<Signature on File>>
== END 2021-04-26 10:27 | disposition home or self-care (01) ==
PROVIDERS: PCP Family Medicine; Visit Provider Internal Medicine Hematology & Oncology
DX: D61.818 Other pancytopenia (principal); D69.6 Thrombocytopenia, unspecified; Z79.899 Other long term (current) drug therapy
CPT/HCPCS: 99214

== ENCOUNTER → 2021-08-08 09:29 | Outpatient (BNVA) | payer MEDICARE, SELFPAY | PROVIDERS: PCP Family Medicine; Visit Provider Internal Medicine Hematology & Oncology | DX: D69.9 Hemorrhagic condition, unspecified (principal) | CPT/HCPCS: 85025 ==

== ENCOUNTER 2021-09-11 13:25 | Outpatient (CLI) | payer MEDICARE, SELFPAY ==
[2021-09-11 13:52] LABS: Basophils % 0.5 %; Eosinophils # 0.1 10^3/uL (0.0-0.8); Eosinophils % 2.1 %; Hematocrit 45.3 % (42.0-52.0); Lymphocytes # 1.1 10^3/uL (0.8-4.8); Lymphocytes % 19.6 %; Mean Corpuscular HGB Conc 33.1 g/dL (30.0-36.0); Mean Corpuscular Hemoglobin 29.2 pg (28.0-34.0); Mean Corpuscular Volume 88.3 fl (80-94); Mean Platelet Volume 12.6 fL (7.4-10.4); Monocytes # 0.4 10^3/uL (0.2-0.9); Monocytes % 7.3 %; Neutrophils # 3.95 10^3/uL (1.8-7.7); Neutrophils % 70.3 %; Nucleated Red Blood Cells % 0 %; Platelet Count 87 10^3/cmm (130-400); Red Blood Count 5.13 10^6/uL (4.1-5.3); Red Cell Distribution Width 14.1 % (12.1-15.1); White Blood Count 5.6 10^3/uL (4.0-10.0)
--- NOTE | 2021-09-11 14:41 | ONC FU_ITS ---
Dr. Hooker follow up note Patient: Ministerio Dukes Unit #: [id number]: 1935 Dicatated By: Patsy Hooker M.D.Date of Visit:Sep 11, 2021 Onc Med Follow-up/Prog Note History of Present Illness: Mr. Dukes is an 85-year-old gentleman with a history of thrombocytopenia. His CBC from April 21, 2019 showed a white blood count of 3.9, platelet count was not performed because of significant clumping noticed but manual count was more than 30,000 and his hemoglobin was 13.7 hematocrit 42.4 MCV 87.1, B12 903, folate 21.5, TIA was negative. He denies any history of petechiae but old healing ecchymosis involving upper extremities. No history of nosebleed, no history of melena or hematochezia, no hemoptysis or hematemesis. No jaundice. Patient denies alcohol use, used to drink but quit 15 years ago, denies smoking. Abdominal sonogram done on 06/22/2019 showed no splenomegaly. His followup labs included Copper level was within normal limits, folic acid 13.7, B12 716, TIA negative. He has been asymptomatic and has not had any weight loss, night sweats, nausea or vomiting. He denies any evidence of bleeding such as melena or hematochezia, hemoptysis or hematemesis. He denies petechia or ecchymosis. No peripheral lymphadenopathy or abdominal fullness. He has remained on observation. His last labs on November 23, 2020 reported a platelet count of 79,000 his hemoglobin was 14.9 and WBC was 4.5. His absolute neutrophil count at that time was 1000. His lymphocytes were reported at 22.6%. Came for follow-up, denies any specific complaints, no fever chills, no nausea or vomiting, no diarrhea constipation, no melena or hematochezia, no nosebleed or gum bleed, no hematuria or dysuria, no petechiae but bruising involving upper extremities only Medications: Lisinopril 1 Tablet (of 10 mg) Oral daily, Lovastatin 1 Tablet (of 10 mg) Oral daily, Magnesium 1 Capsule (of 400 mg) Oral daily, metFORMIN HCl 2 Tablet (of 500 mg) Oral b.i.d., Multivitamin Adult 1 Tablet Oral daily, Verapamil HCl ER 1 Tablet (of 240 mg) Tablet, controlled release Oral daily, vision 1 Capsule daily Allergies: No Known Allergies. Review of Systems: Review of Systems is not available for this patient. Vital Signs: Performed on Sep 11, 2021 14:38 Height - 69.00 in Weight - 199.2 lbs (LOW) BSA - 2.06 sq.m BMI - 29.42 Temperature - 98.2 F (LOW) Pulse - 82 /min Respiration - 16 /min BP - 123/67 mm(hg) O2 Sat - 95 % (LOW) Pain - 0 Fatigue - 1 Performance Status: 0 - Fully active, able to carry on all predisease activities without restrictions. (ECOG) Physical Examination: ENMT - No mouth sores, no thrush, no jaundice, Respiratory - Lungs are clear to auscultation, Cardiovascular - Regular rate and rhythm of heart, Abdomen - Soft, bowel sounds present, Extremities - No visible edema. Lab/Imaging: Test performed on Apr 24, 2021 10:38 WBC 4.8 10^3/uL RBC 4.80 10^6/uL HGB 14.3 g/dL HCT 43.4 % MCV 90.4 fl MCH 29.8 pg MCHC 33.0 g/dL RDW 14.0 % Platelet Count 72 10^3/uL MPV 8.8 fl Neutrophils 3.4 10^3/uL Lymphocytes 1.1 10^3/uL Monocytes 0.3 10^3/uL Neutrophil % 70.3 % Lymphocyte % 23.2 % Monocyte % 6.5 % Impression: Mild pancytopenia with mild to moderate thrombocytopenia, etiology unclear, could be multifactorial including medication induced especially TONY inhibitor e.g. lisinopril, considering his age underlying myelodysplasia cannot be ruled out. Or low-grade ITP. During follow-up his neutropenia/leukopenia/mild anemia resolved but with persistent mild/moderate but stable thrombocytopenia US Abdomen Done on 07/23/2019 Showed No Splenomegaly, Stable Septated Liver Cyst. Plan: Discussed with patient regarding his labs white blood count 5.6 hemoglobin 15 hematocrit 45.3 platelets 87,000 compared to 03/2000 previously, normal differential Clinically, patient is doing well with no new signs symptom suggestive of gross bleeding his follow-up lab work shows isolated mild/moderate thrombocytopenia but stable, no evidence of gross bleeding except bruising involving upper extremities, which could be multifactorial including due to extensive sun damage due to chronic sun exposure. We will continue to monitor and he will return to clinic in 6 months with CBC, patient was advised to call us in case of any evidence of gross bleeding. Signed By: Patsy Hooker M.D. <<Signature on File>>
== END 2021-09-11 13:26 | disposition home or self-care (01) ==
LOC: ONCMED 13:30
PROVIDERS: PCP Nurse Practitioner; Visit Provider Internal Medicine Hematology & Oncology
DX: D61.818 Other pancytopenia (principal); D69.6 Thrombocytopenia, unspecified; K76.89 Other specified diseases of liver; F10.11 Alcohol abuse, in remission; Z79.899 Other long term (current) drug therapy
CPT/HCPCS: 36415; 85025; 99214

== ENCOUNTER 2022-05-25 07:37 | Oncology outpatient (recurring) (ONCR) | payer MEDICARE, SELFPAY | END 2022-05-30 23:59 | disposition home or self-care (01) | PROVIDERS: PCP Nurse Practitioner; Visit Provider Internal Medicine Hematology & Oncology | DX: D61.818 Other pancytopenia (principal); D69.6 Thrombocytopenia, unspecified | CPT/HCPCS: 36415; 85025; 99214; G0463 ==

== ENCOUNTER 2022-11-23 08:54 | Oncology outpatient (recurring) (ONCR) | payer MEDICARE, SELFPAY ==
[2022-11-23 09:25] LABS: Basophils % 0.8 %; Eosinophils # 0.1 10^3/uL (0.0-0.8); Eosinophils % 2.4 %; Hematocrit 44.6 % (42.0-52.0); Hemoglobin 14.9 g/dL (11.7-16.6); Lymphocytes # 1.1 10^3/uL (0.8-4.8); Lymphocytes % 22.2 %; Mean Corpuscular HGB Conc 33.4 g/dL (30.0-36.0); Mean Corpuscular Hemoglobin 30.7 pg (28.0-34.0); Mean Corpuscular Volume 91.8 fl (80-94); Mean Platelet Volume 11.7 fL (7.4-10.4); Monocytes # 0.5 10^3/uL (0.2-0.9); Monocytes % 9.8 %; Neutrophils # 3.16 10^3/uL (1.8-7.7); Neutrophils % 64.4 %; Nucleated Red Blood Cells % 0 %; Platelet Count 85 10^3/cmm (130-400); Red Blood Count 4.86 10^6/uL (4.1-5.3); Red Cell Distribution Width 13.9 % (12.1-15.1); White Blood Count 4.9 10^3/uL (4.0-10.0)
== END 2022-11-27 23:59 | disposition home or self-care (01) ==
PROVIDERS: Nurse Practitioner; PCP Nurse Practitioner; Visit Provider Internal Medicine Hematology & Oncology
DX: D69.6 Thrombocytopenia, unspecified; Z79.899 Other long term (current) drug therapy; Z87.891 Personal history of nicotine dependence
CPT/HCPCS: 36415; 85025; 99214

== ENCOUNTER 2023-05-27 12:07 | Oncology outpatient (recurring) (ONCR) | payer MEDICARE, SELFPAY ==
[2023-05-27 12:10] VITALS: BP 130/71; PULSE 87; RESP 18; TEMP 36.2; O2SAT 93
[2023-05-27 12:28] LABS: Basophils % 0.5 %; Eosinophils # 0.1 10^3/uL (0.0-0.8); Eosinophils % 2.1 %; Hematocrit 42.6 % (37-53); Lymphocytes # 0.9 10^3/uL (0.8-4.8); Lymphocytes % 22.1 %; Mean Corpuscular Hemoglobin 30.5 pg (27-33); Mean Corpuscular Volume 89.7 fl (82-101); Mean Platelet Volume 11.6 fL (7.4-10.4); Monocytes # 0.4 10^3/uL (0.2-0.9); Monocytes % 9.2 %; Neutrophils % 65.9 %; Nucleated Red Blood Cells % 0 %; Platelet Count 68 10^3/cmm (157-399); Red Blood Count 4.75 10^6/uL (3.85-5.65); Red Cell Distribution Width 13.4 % (12.1-15.1); White Blood Count 4.25 10^3/uL (3.29-11.43)
== END 2023-05-30 23:59 | disposition home or self-care (01) ==
PROVIDERS: PCP Nurse Practitioner; Visit Provider Internal Medicine Medical Oncology
DX: D61.818 Other pancytopenia (principal); D69.6 Thrombocytopenia, unspecified
CPT/HCPCS: 36415; 85025; 99214

== ENCOUNTER → 2023-07-02 09:50 | Outpatient (BNVA) | payer MEDICARE, SELFPAY | PROVIDERS: PCP Nurse Practitioner; Visit Provider Podiatrist Foot & Ankle Surgery | DX: E11.42 Type 2 diabetes mellitus with diabetic polyneuropathy (principal); L60.3 Nail dystrophy; M21.621 Bunionette of right foot; M21.622 Bunionette of left foot; M21.611 Bunion of right foot; M21.612 Bunion of left foot; Z79.84 Long term (current) use of oral hypoglycemic drugs; Z79.4 Long term (current) use of insulin | CPT/HCPCS: 11721; 99203 ==

== ENCOUNTER → 2023-10-09 11:16 | Outpatient (BNVA) | payer MEDICARE, SELFPAY | PROVIDERS: PCP Nurse Practitioner; Visit Provider Podiatrist Foot & Ankle Surgery | DX: E11.42 Type 2 diabetes mellitus with diabetic polyneuropathy (principal); L60.3 Nail dystrophy; M21.621 Bunionette of right foot; M21.622 Bunionette of left foot; M21.611 Bunion of right foot; M21.612 Bunion of left foot; L84 Corns and callosities; Z79.84 Long term (current) use of oral hypoglycemic drugs; Z79.4 Long term (current) use of insulin | CPT/HCPCS: 11056; 11721 ==

== ENCOUNTER 2023-10-14 10:00 | Inpatient (IN) | payer MEDICARE, SELFPAY ==
[2023-10-14] VITALS (12 sets, daily range): BP systolic 78–105; BP diastolic 44–78; PULSE 139–150; RESP 22–27; TEMP 36.6–37.2; O2SAT 97–100; BMI 29.7
--- NOTE | 2023-10-14 10:02 | XR_ITS ---
WS: [id number] Exam: XR chest 1V portable [id number] Date/Time of Exam: 10/14/2023 10:10 AM Reason For Exam: dyspnea/cough No priors. The lungs are fully expanded and clear. Unremarkable cardiomediastinal silhouette. No pleural effusio ns. Bony structures are intact. Degenerative changes of the LEFT shoulder. Several old LEFT rib fract ures. IMPRESSION: 1. No acute cardiopulmonary process.
--- NOTE | 2023-10-14 10:04 | ED_ITS ---
HPI - General Adult 2 General: Chief complaint: ER Hold Stated complaint: ams Time Seen by Provider: 10/14/23 10:02 Source: EMS History of Present Illness: 87-year-old male arrives via EMS from [facility]. He was determined at home could not wait EMS states the family said they did not want any resuscitative measures done and just to nursing when he was not waking up he has been like this since yesterday at about 10 has been vomiting blood and having bloody stools throughout the weekend. He has a known history of dementia and at times per family report via EMS he has been aggressive with his behaviors. He is diabetic as well as blood sugars were over 400 in the field. Talk to the on the phone due to weather and road condition she is not able to come to the emergency room. She does not want him to be intubated she does not want him to undergo CPR. She does want us to give him blood and do other interventions that might be helpful. She also consented to having an EGD done if it is felt appropriate at some point. Onset (ago): day(s) (1) Associated symptoms: Reports vomiting Treatments prior to arrival: none Review of Systems 2 General: Reports: ROS unobtainable due to medical condition and ROS unobtainable due to mental status GI: Reports: vomiting, hematemesis, hematochezia and melena PFS ED 2 PFSH: Medical History (Updated 10/14/23 @ 13:38 by Sony Jose DO) Dementia Hyperlipidemia Diabetes mellitus Other pancytopenia Hypertension Peripheral neuropathy Thrombocytopenia Thrombocytopenia Surgical History (Updated 10/14/23 @ 12:56 by Abram Lucia MD) History of cholecystectomy Family History Sister Cancer breast Other Diabetes Denies family history of CAD (coronary artery disease) Clotting disorder Dementia Hyperlipidemia Psychiatric illness Chronic kidney disease (CKD) Suicide Anesthesia complication Bleeding disorder Lung disease Hypertension Stroke Social History Smoking and tobacco/nicotine status: former use of tobacco/nicotine (smoked x 20 years) Quit status (tobacco/nicotine): has quit using Year quit tobacco: 1984 Former quit date comment: smoked for 20 years Alcohol intake: never Physical Exam 2 HENMT: COMMON NORMALS: normocephalic and atraumatic HEAD & SCALP: n ormocephalic and atraumatic Resp: AUSCULTATION: rhonchi and wheezes Cardio: COMMON NORMALS: regular rhythm RATE: tachycardic RHYTHM: regular rhythm GI: COMMON NORMALS: Soft to palpation and No hepatosplenomegaly present A USCULTATION: Yes normoactive bowel sounds PALPATION: Yes Soft to palpation, No Tenderness to palpation present (GI), No Guarding due to palpation present (GI) and Yes No hepatosplenomegaly present Extremity: COMMON NORMALS: normal to inspection, capillary refill normal, no clubbing, cyanosis or edema, no calf tenderness and no pedal edema Neuro: PLANTAR REFLEX: upgoing (positive Babinski): bilateral Skin: COMMON NORMALS: no rashes or lesions noted GENERAL SKIN EXAM: no rashes or lesions noted Procedures Central Line Placement Right IJ: Time Out Performed: Yes Patient Placed on Monitor/Pulse Ox: Yes MD Prep: mask, gown and gloves Central Line Prep: Chlorhexidine scrub Ultrasound Used for Placement: Yes Central Line Lumen Inserted: triple Post Procedure: sutured in place, good blood return, all ports aspirated, flushed, capped and sterile dressing applied Post Procedure X-Ray: tip of catheter in good position and no pneumothorax seen Patient Tolerated Procedure: well Complications: none Course 2 Vital Signs: Vital signs: Vital Signs Temperature 98.9 F 10/14/23 13:15 Pulse Rate 145 H 10/14/23 13:15 Respiratory Rate 26 H 10/14/23 13:15 Blood Pressure 89/51 10/14/23 13:15 Pulse Oximetry 100 10/14/23 13:15 Oxygen Delivery Me thod Room Air 10/14/23 12:45 MDM - General Adult Medical Decision Making Patient has been given unit of blood second unit is infusing at 2 units of fresh frozen plasma pending is also been given Protonix. He has been started on Zosyn and Levaquin concerned about the possibility of aspiration. In talking to his the initial evidence of GI bleeding it began more than 48 hours ago. His INR and is elevated and his fibrinogen level is slightly low suspect that he is beginning to have DIC. With Levophed his blood pressure did improve after central line was placed. Will admit to the ICU the is consented to EGD as well if appropriate consult to Dr. Woody for this. Medical Records I reviewed the patient's medical records. Lab Data I reviewed the patient's lab results. 10/14/23 10:13 10/14/23 10:13 Laboratory Results WBC 16.88 10^3/uL (3.29-11.43) H 10/14/23 10:13 RBC 1.80 10^6/uL (3.85-5.65) L 10/14/23 10:13 Hgb 5.80 g/dL (11.27-16.99) L* 10/14/23 10:13 Hct 17.8 % (37-53) L* 10/14/23 10:13 MCV 98.9 fl (82-101) 10/14/23 10:13 MCH 32.2 pg (27-33) 10/14/23 10:13 MCHC 32.6 g/dL (30-55) 10/14/23 10:13 RDW 16.4 % (12.1-15.1) H 10/14/23 10:13 Plt Count 131 10^3/cmm (157-399) L 10/14/23 10:13 MPV 12.5 fL (7.4-10.4) H 10/14/23 10:13 Neut % (Auto) 75.0 % 10/14/23 10:13 Lymph % (Auto) 14.0 % 10/14/23 10:13 [place] % (Auto) 10.1 % 10/14/23 10:13 Eos % (Auto) 0.0 % 10/14/23 10:13 Baso % (Auto) 0.1 % 10/14/23 10:13 Neut # (Auto) 12.66 10^3/uL (1.8-7.7) H 10/14/23 10:13 Lymph # (Auto) 2.4 10^3/uL (0.8-4.8) 10/14/23 10:13 [place] # (Auto) 1.7 10^3/uL (0.2-0.9) H 10/14/23 10:13 Eos # (Auto) 0.0 10^3/uL (0.0-0.8) 10/14/23 10:13 Baso # (Auto) 0.0 10^3/uL (0.0-0.1) 10/14/23 10:13 Nucleated RBC % (auto) 0.2 % 10/14/23 10:13 Nucleated RBCs # 0.0 /100WBC 10/14/23 10:13 PT 22.10 SECONDS (12.1-14.9) H 10/14/23 10:13 INR 1.86 (0.8-1.2) H 10/14/23 10:13 Fibrinogen 171 mg/dL (174-498) L 10/14/23 10:13 Specimen Type Arterial 10/14/23 10:18 Sample Site Radial, left 10/14/23 10:18 ABG pH 7.48 (7.35-7.45) H 10/14/23 10:18 ABG pCO2 22.6 mmHg (35-45) L 10/14/23 10:18 ABG pO2 112.0 mmHg (80.0-100.0) H 10/14/23 10:18 ABG PO2/FiO2 Ratio 0 10/14/23 10:18 ABG HCO3 16.9 mmol/L (22-26) L 10/14/23 10:18 ABG O2 Saturation > 100.0 10/14/23 10:18 ABG Base Excess -6.1 mmol/L (-2.0-2.0) L 10/14/23 10:18 Melo Test Pos 10/14/23 10:18 A-a O2 Gradient 1.1 mmHg (5-10) L 10/14/23 10:18 Hematocrit 18.1 % (42-52) L 10/14/23 10:18 Hgb O2 Saturation 97.6 % (95-100) 10/14/23 10:18 Carboxyhemoglobin 1.8 %THgb (0.4-20.1) 10/14/23 10:18 Methemoglobin 0.8 % (0.4-1.5) 10/14/23 10:18 Total Hemoglobin 5.9 g/dL (14-18) L 10/14/23 10:18 Sodium 137.0 mmol/L (131-143) 10/14/23 10:18 Potassium 4.8 mmol/L (3.5-5.0) 10/14/23 10:18 Glucose 348.0 mg/dL (70-115) H 10/14/23 10:18 Ionized Calcium 1.1 mmol/L (1.1-1.4) 10/14/23 10:18 O2 Delivery Device Room air 10/14/23 10:18 FiO2 21.0 % 10/14/23 10:18 Order Packer ID Cak 10/14/23 10:18 Sodium 134 mmol/L (136-145) L 10/14/23 10:13 Potassium 5.0 mmol/L (3.5-5.1) 10/14/23 10:13 Chloride 100 mmol/L (98-107) 10/14/23 10:13 Carbon Dioxide 16 mmol/L (22-29) L 10/14/23 10:13 Anion Gap 23.0 (5-19) H 10/14/23 10:13 BUN 127 mg/dL (8-23) H* D 10/14/23 10:13 Creatinine 1.7 mg/dL (0.7-1.2) H 10/14/23 10:13 GFR Calculation Not Reportable 10/14/23 10:13 Glucose 341 mg/dL (65-115) H 10/14/23 10:13 POC Glucose 358 mg/dL (70-110) H 10/14/23 10:05 Calculated Osmolality 332 mOsm/kg (285-295) H 10/14/23 10:13 Lactic Acid 6.6 mmol/L (0.5-2.2) H* 10/14/23 10:13 Calcium 7.8 mg/dL (8.5-10.5) L 10/14/23 10:13 Total Bilirubin 0.6 mg/dL (0.15-1.2) 10/14/23 10:13 AST 169 U/L (0-40) H 10/14/23 10:13 ALT 123 U/L (0-41) H 10/14/23 10:13 Alkaline Phosphatase 72 U/L (40-130) 10/14/23 10:13 Total Protein 4.6 g/dL (6.6-8.7) L 10/14/23 10:13 Albumin 2.6 g/dL (3.5-5.2) L 10/14/23 10:13 Globulin 2.0 g/dL (1.3-4.6) 10/14/23 10:13 Urine Color Yellow (Yellow) 10/14/23 10:26 Urine Appearance Clear (CLEAR) 10/14/23 10:26 Urine pH 5 (5-7) 10/14/23 10:26 Ur Specific [place]ridge 1.010 (1.005-1.030) 10/14/23 10:26 Urine Protein Trace (Negative) 10/14/23 10:26 Urine Glucose (UA) Norm (Normal) 10/14/23 10:26 Urine Ketones 1+ (Negative) H 10/14/23 10:26 Urine Blood Neg (Negative) 10/14/23 10:26 Urine Nitrate Negative (Negative) 10/14/23 10:26 Urine Bilirubin Neg (Negative) 10/14/23 10:26 Urine Urobilinogen Neg mg/dL (Negative) 10/14/23 10:26 Ur Leukocyte Esterase Negative (Negative) 10/14/23 10:26 Urine RBC 0-4 /hpf (0-2) H 10/14/23 10:26 Urine WBC 5-10 /hpf (0-5) H 10/14/23 10:26 Ur Squamous Epith Cells 0-4 /hpf (0-5) H 10/14/23 10:26 Amorphous Sediment Not Reportable 10/14/23 10:26 Urine Bacteria 1+ /hpf (NONE) H 10/14/23 10:26 Hyaline Casts 25-40 /lpf H 10/14/23 10:26 Urine Mucus Trace /hpf 10/14/23 10:26 Serum Ketones Negative (Negative) 10/14/23 10:13 Influenza Type A Ag negative (Negative) 10/14/23 10:26 Influenza Type B Ag negative (Negative) 10/14/23 10:26 Blood Type B Positive 10/14/23 10:32 Rho(D) Type Rh positive 10/14/23 10:32 Antibody Screen Negative 10/14/23 10:32 Crossmatch See Detail 10/14/23 10:32 All radiology interpretation(s) finalized by discharge Discharge Plan Discharge Patient Disposition: Admitted As Inpatient Admit Provider: Abram Lucia Clinical Impression: Hypovolemic shock, Dementia, Acute upper gastrointestinal bleeding, Acute blood loss anemia, Acute kidney injury, Transaminitis, DIC (disseminated intravascular coagulation) Condition: Stable Coding Level of Care Code ED Teacher Of The Visually Impaired for Holley Stanford
--- NOTE | 2023-10-14 10:08 | ECG_ITS ---
[facility] Test Date: 2023-10-14 Pat Name: Ministerio Dkues Department: Room: Gender: Male [employer]: : 1935 Requested By: Sony Thomson Order Number: [id number] Edward MD: Jose Flood M.D. Measurements Intervals [place] Rate: 147 P: 209 SC: 134 QRS: 15 QRSD: 123 T: 31 QT: 306 QTc: 479 Interpretive Statements SINUS TACHYCARDIA, POSSIBLE ATRIAL FLUTTER MODERATE INTRAVENTRICULAR CONDUCTION DELAY [110+ ms QRS DURATION] MINIMAL ST DEPRESSION [0.025+ mV ST DEPRESSION] No previous ECG available for comparison Electronically Signed On 10-14-2023 11:22:05 PROFESSOR OF PHYSICAL EDUCATION by Jose Flood M.D. [email or web address] medical surgical hospitalGrupo [email or web address]/store/[id number]
[2023-10-14 10:17] LABS: Glucose Point of Care 358 mg/dL (70-110)
[2023-10-14 10:21] LABS: Basophils % 0.1 %; Lymphocytes # 2.4 10^3/uL (0.8-4.8); Mean Corpuscular HGB Conc 32.6 g/dL (30-55); Mean Corpuscular Hemoglobin 32.2 pg (27-33); Mean Corpuscular Volume 98.9 fl (82-101); Mean Platelet Volume 12.5 fL (7.4-10.4); Monocytes # 1.7 10^3/uL (0.2-0.9); Monocytes % 10.1 %; Neutrophils # 12.66 10^3/uL (1.8-7.7); Nucleated Red Blood Cells % 0.2 %; Platelet Count 131 10^3/cmm (157-399); Red Cell Distribution Width 16.4 % (12.1-15.1); White Blood Count 16.88 10^3/uL (3.29-11.43)
[2023-10-14 10:27] LABS: Hematocrit 17.8 % (37-53)
[2023-10-14 10:30] LABS: ABG PCO2 22.6 mmHg (35-45); ABG PH Result 7.48 (7.35-7.45); Alveolar-Arterial Oxygen Gradi 1.1 mmHg (5-10); Arterial Blood Gas Hematocrit 18.1 % (42-52); Base Excess ABG -6.1 mmol/L (-2.0-2.0); Blood Gas Allen Test Pos; Blood Gas Operator Identificat CAK; Blood Gas Sample Site Radial, left; Blood Gas Sample Type Arterial; Carboxyhemoglobin 1.8 %THgb (0.4-20.1); HCO3 ABG 16.9 mmol/L (22-26); HGB O2 Sat 97.6 % (95-100); Ionized Calcium Level - ABG 1.1 mmol/L (1.1-1.4); Methemoglobin 0.8 % (0.4-1.5); Oxygen Device ROOM AIR; Oxygen Saturation ABG > 100.0; PO2 FiO2 Ratio Arterial Blood 0; Potassium Level - ABG 4.8 mmol/L (3.5-5.0); Total Hemoglobin 5.9 g/dL (14-18)
[2023-10-14 10:32] LABS: Ketone (Acetest) Serum Negative (Negative)
[2023-10-14 10:38] LABS: Alanine Aminotransferase 123 U/L (0-41); Albumin Level 2.6 g/dL (3.5-5.2); Alkaline Phosphatase 72 U/L (40-130); Aspartate Amino Transferase 169 U/L (0-40); Calcium 7.8 mg/dL (8.5-10.5); Carbon Dioxide 16 mmol/L (22-29); Chloride 100 mmol/L (98-107); Glucose 341 mg/dL (65-115); Sodium 134 mmol/L (136-145); Total Bilirubin 0.6 mg/dL (0.15-1.2); Total Protein 4.6 g/dL (6.6-8.7)
[2023-10-14] MEDS: sodium chloride 0.9% 1,000 ML 999 ML IV ×2 (10:44→13:50)
[2023-10-14 10:45] LABS: Blood Urea Nitrogen 127 mg/dL (8-23); Lactic Sepsis W/Reflex 6.6 mmol/L (0.5-2.2); Osmolality Calculated 332 mOsm/kg (285-295)
[2023-10-14 10:56] LABS: Glucose Urine UA Norm (Normal); Protein Urine Trace (Negative); Urine Appearance Clear (CLEAR); Urine Color Yellow (Yellow); pH Urine 5 (5-7)
[2023-10-14 10:57] LABS: Add Urine Culture? No; Add Urine Microscopic? YES; Bacteria Urine 1+ /hpf; Bilirubin Urine Neg (Negative); Blood Urine Neg (Negative); Hyaline Casts Urine 25-40 /lpf; Ketones Urine 1+ (Negative); Leukocyte Esterase Urine Negative (Negative); Mucus Urine TRACE /hpf; Nitrate Urine Negative (Negative); RBC Urine 0-4 /hpf (0-2); Squamous Epithelial Cell Urine 0-4 /hpf (0-5); Urobilinogen Urine Neg (Negative)
[2023-10-14 11:01] LABS: Influenza A by IFA negative (Negative); Influenza B by IFA negative (Negative)
[2023-10-14] MEDS: pantoprazole 40 mg SDV 80 MG IVP (11:28)
[2023-10-14] MEDS: levofloxacin-dextrose 5 % 750 MG/150 ML PREMIX 100 MG IV (11:28)
[2023-10-14 11:50] LABS: INR 1.86 (0.8-1.2)
[2023-10-14 12:03] LABS: Reflex Lactate Order REFLEX LACTIC ORDERD
[2023-10-14 12:08] LABS: Fibrinogen 171 mg/dL (174-498)
--- NOTE | 2023-10-14 12:12 | CT_ITS ---
WS: [id number] CT HEAD NONCONTRAST HISTORY: fall - AMS - non-responsive TECHNIQUE: Contiguous axial imaging performed through the brain in 2.5 mm imaging. Bone and soft tiss ue windows. Sagittal and coronal reformats reviewed. All CT scans at [facility] use at least one of these dose optimization techniques: automated exposure control; mA and/or kV adjustment per pa tient size (includes targeted exams where dose is matched to clinical indication); or iterative recon struction. DLP: 1173.34 mGy.cm COMPARISON: None available. No acute intracranial hemorrhage, midline shift or mass effect. Moderate atrophy and small vessel ischemic disease. No midline shift. No intraventricular blood. Mode rate cerebellar atrophy. Ventricles: Normal size with no hydrocephalus. Paranasal sinuses: As visualized are clear. Mastoid air cells: Well pneumatized. Calvarium and scalp: Skull is intact with no soft tissue edema or swelling. IMPRESSION: 1. No acute intracranial hemorrhage or edema. 2. Moderate cerebral and cerebral atrophy with small vessel ischemic disease.
--- NOTE | 2023-10-14 12:12 | CT_ITS ---
WS: [id number] CT ABDOMEN AND PELVIS WITH CONTRAST HISTORY: upper GI bleed TECHNIQUE: Imaging performed of the abdomen and pelvis with IV contrast. Single phase imaging of the abdomen. Coronal and sagittal reformats are submitted. All CT scans at [facility] use at [address] one of these dose optimization techniques: automated exposure control; mA and/or kV adjustment per patient size (includes targeted exams where dose is matched to clinical indication); or iterative re construction. IV CONTRAST: Omnipaque 350; 100 mL IV. Oral contrast: No DLP: 1113.10 mGy.cm COMPARISON: None available. Motion artifact. Lower thorax: Benign granulomas at the RIGHT lung base. Hazy attenuation from breathing motion artifa ct. Heart is normal size. Moderate sized hiatal hernia. Liver/biliary system: Cirrhotic liver. Central hepatic cyst abuts the portal vein measuring 3.2 x 2.3 cm. Gallbladder: Status post cholecystectomy. No bile duct dilatation. Pancreas: Moderate diffuse atrophy. Spleen: Normal size with granulomata. Adrenal glands: Normal. Right kidney: Nonobstructing calcifications. No mass. Left kidney: Nonobstructing calcifications. Aorta: Moderate atherosclerosis with no aneurysm. Lymphadenopathy: Mild hazy attenuation within the omentum but no definite adenopathy. There is hazy a ttenuation may be due to a small amount of edema or the motion artifact from breathing. Small mesente dawn lymph nodes. Free fluid: There is a small amount of ascites along the paracolic gutters extending into the pelvis. GI tract: Abnormal appearance of the stomach. There is a soft tissue mass which does not enhance towa rds the fundus of the stomach extending into the wall of the stomach. Mass measures 6.5 x 6.6 cm. The re is interruption of the normal rugal folds and the enhancement of the stomach wall. No additional m ass and no obstruction. Distal colonic diverticulosis without acute diverticulitis. Abdominal wall: Fat containing umbilical hernia. Pelvis: Small amount of free fluid in the pelvis. Laws catheter present in the urinary bladder. Bones: Osteopenia. IMPRESSION: 1. Soft tissue mass centered in the fundus of the stomach with involvement of the gastric wall. Mass measures 6.5 x 6.7 cm with no significant enhancement. Differential includes gastric carcinoma, lymp alen and GIST. 2. Small amount of ascites. 3. Subcentimeter small central mesenteric lymph nodes. There is mild stranding throughout the omentu m in the mesentery which may be in part due to motion or edema. Cannot completely exclude omental car cinomatosis. 4. Cirrhotic liver. 5. Moderate size hiatal hernia. 6. Prior cholecystectomy.
--- NOTE | 2023-10-14 12:53 | P.HP_ITS ---
Providers/Chief Complaint 2 Admitting Physician: Abram Lucia MD Primary Care Provider: JANKI Hooper Chief Complaint: ams History of Present Illness Ministerio Dukes is a 87 year old male presenting to the emergency department with history of hematemesis, melena over the weekend. History was obtained from the emergency department physician via the . Patient has history of fairly severe dementia with behaviors, and currently is not responsive and cannot participate in any further history. There is also some concern of anti- inflammatory use at home. No known history of liver disease. Has seen oncology, for concerns of low platelets. Consideration of bone marrow biopsy occurred. 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 reports he has not been eating and drinking the last 24 hours. Became ill Saturday with GI blood loss. Although he has dementia, still drives at times, and can maneuver about the house. She does confirm that he is adamant about allow natural status. Review of Systems 2 General: Reports: ROS unobtainable due to mental status Medications/Allergies Home Medications Medication Instructions Recorded Confirmed Last Taken Type lisinopril 10 mg tablet 10 mg PO DAILY 05/25/22 10/14/23 10/12/23 History magnesium oxide 400 mg PO DAILY 05/25/22 10/14/23 10/12/23 History multivitamin 1 tab PO DAILY 05/25/22 10/14/23 10/12/23 History vitamins A,C,P-slle-gjokrp 4,296 1 cap PO DAILY 05/25/22 10/14/23 10/12/23 History mcg-226 mg-90 mg capsule (PreserVision AREDS) insulin detemir U-100 100 unit/mL See Rx Instructions .Route .COMPLEX 07/02/23 10/14/23 10/12/23 History subcutaneous solution (Levemir U-100 Insulin) insulin syringe-needle U-100 0.5 #10 ea 07/02/23 10/14/23 Unknown History mL 31 gauge x 5/16 (TRUEplus Insulin) lovastatin 20 mg tablet 20 mg PO QPM 10/14/23 10/14/23 10/12/23 History metformin 500 mg tablet 1,000 mg PO BID 10/14/23 10/14/23 10/12/23 History Allergies Allergy/AdvReac Type Severity Reaction Status Date / Time No Known Allergies Allergy Verified 10/14/23 10:10 PFSH Acute 2 PFSH: Medical History Dementia Hyperlipidemia Diabetes mellitus Other pancytopenia Hypertension Peripheral neuropathy Thrombocytopenia Thrombocytopenia Surgical History History of cholecystectomy Family History Sister Cancer breast Other Diabetes Denies family history of CAD (coronary artery disease) Clotting disorder Dementia Hyperlipidemia Psychiatric illness Chronic kidney disease (CKD) Suicide Anesthesia complication Bleeding disorder Lung disease Hypertension Stroke Social History (Updated 10/14/23 @ 14:52 by Abram Lucia MD) Smoking and tobacco/nicotine status: former use of tobacco/nicotine (smoked x 20 years) Quit status (tobacco/nicotine): has quit using Year quit tobacco: 1984 Former quit date comment: smoked for 20 years Alcohol intake: former Vitals/I&O/Wt Last Vital Signs Temp 98.8 F 10/14/23 12:15 Pulse 149 H 10/14/23 12:15 Resp 25 H 10/14/23 12:15 BP 102/45 10/14/23 12:15 Pulse Ox 100 10/14/23 12:15 O2 Del Method Room Air 10/14/23 12:15 10/13/23 10/14/23 10/14/23 22:59 06:59 14:59 Intake Total 1000 / 1000 Balance 1000 / 1000 Physical Exam 2 Narrative: General exam is an unresponsive male, with tachypnea HEENT: Atraumatic, normocephalic. Pupils round. Horizontal eye movement, with eye opening. He does not focus. Oropharynx dry Neck is supple no lymphadenopathy thyromegaly Cardiovascular tachycardic, regular, no murmur Lungs clear but with diminished breath sounds bilaterally Abdomen a few bowel sounds. No obvious organomegaly. Scar noted exam Laws Extremities trace edema. No cyanosis or clubbing Neuro: No purposeful response to sternal rub Skin no obvious rash or low back not examined Data 10/14/23 10:13 10/14/23 10:13 Other Labs: INR 1.86 Fibrinogen 171 LFTs demonstrate AST elevated 169, ALT 123. Total bilirubin is normal. Calcium 7.8, albumin 2.6. No lipase was done. Lactic acid 6.6 and repeat 5.4 ABG demonstrates pH 7.48, pCO2 22, pO2 112 on room air Urinalysis demonstrates 5-10 whites, 0-4 reds Serum ketones negative Coronavirus, flu negative. Coronavirus was PCR Chest x-ray by my read no infiltrate, some atherosclerotic disease Head CT, which I reviewed as well no obvious bleed CT abdomen pelvis demonstrates a soft tissue mass, fundus of the stomach involvement of gastric wall measuring 6-1/2 x 6-1/2, small amount of ascites, cirrhosis, moderate hiatal hernia. EKG demonstrates sinus tachycardia, rate around 140, normal axis, nonspecific ST-T wave changes. Blood cultures were done Ammonia level 162 A&P Assessment and plan (1) Gastrointestinal bleeding: Patient presents with GI bleeding, perhaps going on since Saturday. He has not had a prior GI bleed CT scan suggests possible mass. Cannot completely rule out esophageal varices, gastric varices, etc. Currently receiving 2 units of packed red blood cells and FFP Monitor for any ongoing bleeding Repeat hemoglobin in approximately 30 minutes following transfusions Continue fluid support Octreotide Protonix has been given in the ER, continue 40 mg IV every 12 hours If stabilizes consider EGD, surgical consultation. (2) Acute blood loss anemia: See above (3) Acute kidney injury: Patient presents with acute kidney injury Continue hydration, blood transfusion Repeat creatinine tomorrow Laws catheter Avoid renal toxic medications, anti-inflammatories No evidence of obstruction on CT (4) Hypovolemic shock: Patient presents with hypovolemic shock secondary to blood loss as well as poor p.o. intake Transfusion as above Norepinephrine as needed and initiated. 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 (7) Cirrhosis: Noted on CT Note ammonia level is elevated (8) Dementia: Patient apparently has underlying history of dementia, occasionally with behaviors. Currently he is not responsive so we will continue to monitor (9) Acute encephalopathy: Patient presents with acute encephalopathy. Certainly this may be secondary to severe blood loss or even brain injury. CT scan demonstrated nothing acute. Continue to monitor for any improvement. Hold any sedative medications. Ammonia level is elevated. Will repeat tomorrow. This might be significantly elevated secondary to his GI blood loss as well. Plan Other medical problems as noted in past medical history Allow natural . Discussed in detail with . He would not want CPR, or endotracheal innervation. He would not want mechanical ventilation. He is okay with pressor agents, other supportive care. Anticoagulation is contraindicated, SCDs only for DVT prophylaxis Attestations 2 Medical Necessity Statement*: Will need greater than 2 midnight stay for evaluation of acute encephalopathy, severe anemia, acute blood loss from GI source. Critical Care Time: 65The high probability of a clinically s ignificant, sudden or life threatening deterioration of the patient's [GI, neurologic, hematologic] system(s) required my full and direct attention, intervention and personal management. The critical care time is as shown. This time is in addition to time spent performing any reported procedures but includes the following: [x] Data and vital sign review and interpretation [x] Patient assessment, examination and intervention [x] Documentation [x] Medication orders and management Coding Level of Care Code Critical Care >/= 30 minutes Critical care time (in minutes): 65 The high probability of a clinically significant, sudden or life threatening deterioration, as referenced in this documentation, required my full and direct attention, intervention and personal management. The critical care time shown is in addition to time spent performing any reported separately billable procedures and includes the following: [x] Data and vital sign review and interpretation [x ] Patient assessment, examination and intervention [x] Medication orders and management [x] Patient/Family updates as able [x] Care Coordination and Documentation. Diagnoses Gastrointestinal bleeding K92.2 Acute blood loss anemia D62 Acute kidney injury N17.9 Hypovolemic shock R57.1 Transaminitis R74.01 Thrombocytopenia D69.6 Cirrhosis K74.60 Dementia F03.90 Acute encephalopathy G93.40
--- NOTE | 2023-10-14 13:07 | XR_ITS ---
WS: [id number] Exam: XR chest 1V portable [id number] Date/Time of Exam: 10/14/2023 1:11 PM Reason For Exam: central line placement Comparison 10/14/2023. A right-sided IJ catheter has been placed and appears to extend into the RIGHT atrium. The lungs are clear and fully expanded. Normal cardiomediastinal silhouette. No pleural effusions. Regional bony st ructures are intact. IMPRESSION: 1. RIGHT IJ catheter appears to end in the RIGHT atrium. 2. No acute cardiopulmonary finding.
[2023-10-14] MEDS: iohexol 350 mg/mL 500 mL Btl (per mL) IV (13:40)
[2023-10-14 13:42] LABS: Lactic Acid level (Lactate) 5.4 mmol/L (0.5-2.2)
[2023-10-14 13:51] LABS: Ammonia 162 umol/L (16-60)
[2023-10-14] MEDS: piperacillin-tazobactam 3.375 GM in sodium chloride 0.9% (plus) 50 ML IV (13:51)
[2023-10-14] MEDS: norepinephrine 4 MG/250 ML BAG 30 MG IV (13:52)
[2023-10-14 14:15] LABS: Adenovirus Not Detected (NOT DETECT); Chlamydia Pneumoniae Not Detected (NOT DETECT); Coronavirus 229E,HKU1,NL63,OC4 Not Detected (NOT DETECT); Human Metapneumovirus Not Detected (NOT DETECT); Human Rhinovirus/Enterovirus Not Detected (NOT DETECT); Influenza A Not Detected (NOT DETECT); Influenza A H1 Not Detected (NOT DETECT); Influenza A H1-2009 Not Detected (NOT DETECT); Influenza A H3 Not Detected (NOT DETECT); Influenza B Not Detected (NOT DETECT); Mycoplasma Pneumoniae Not Detected (NOT DETECT); Parainfluenza Virus Type 1 Not Detected (NOT DETECT); Parainfluenza Virus Type 2 Not Detected (NOT DETECT); Parainfluenza Virus Type 3 Not Detected (NOT DETECT); Parainfluenza Virus Type 4 Not Detected (NOT DETECT); Respiratory Syncytial Virus A Not Detected (NOT DETECT); Respiratory Syncytial Virus B Not Detected (NOT DETECT); SARS-COV-2 Not Detected (NOT DETECT)
[2023-10-14 14:40] LABS: Glucose Point of Care 373 mg/dL (70-110)
[2023-10-14] MEDS: octreotide 100 mcg/mL SDV 50 MCG IVP (15:33)
[2023-10-14] MEDS: octreotide 500 MCG in sodium chloride 0.9% (100 ml) 100 ML 10.1 MCG IV (15:33)
--- NOTE | 2023-10-14 17:00 | W.PM.EVENTAC ---
Event Note Event Note: Patient admitted to ICU, receiving ICU care in the emergency department as no beds currently in the ICU. Family has now, and, , and situation explained in detail again. Review of CT scan of head and CT abdomen and pelvis showing concern for tumor and fundus of stomach. She again discusses patient's DNR status, and at this time considering he is still not responsive, new finding of mass in the stomach, underlying comorbidities she wishes to move him to comfort measures only. This is reasonable considering his condition and presentation. She would like to take him home with hospice tomorrow if possible. Will arrange for hospice referral, discontinue current IV treatments including pressors which were discussed in detail with the patient's , and initiate comfort measures on the second floor.
--- NOTE | 2023-10-14 17:12 | PC.NURSE ---
Pt medication stopped at this time per Dr Lucia.
[2023-10-15] MEDS: morphine 4 mg/mL SDV 1 mL IVP (02:51)
[2023-10-15 08:05] VITALS: BP 102/66; PULSE 151; RESP 28; TEMP 36.3; O2SAT 92
--- NOTE | 2023-10-15 09:24 | PC.CHAP ---
Pastoral Care Encounter/Spiritual Assessment Type of Contact [] Declined restaurant assistant visit [] Patient/Family/Request visit [] Outpatient visit [] Follow-up visit [] Physician referral [] Code/Alert [] Routine visit [] Staff referral [] Actively dying [x] Patient sleeping [] Family support [] [] Out of room [] Palliative care [] [] Receiving care in room [] Pre-surgical visit [] Trauma [] Long length of stay [] ICU visit [] Other: Relational/Emotional Strength [] Patient feels connected with others/family/visitors/staff [] Distress [] Loneliness/isolation [] Abandonment Spirituality of Patient [] Person of Carmen [] Attends Presybeterian of their Carmen [] Believes in Prayer [] Reads Bible or Uatsdin materials [] There are Spiritual issues to be addressed Review Scheduling Coordinator Interventions [] Prayer [] Active listening [] Non-anxious presence [] Spiritual/emotional support [] Crisis/trauma care [] Spiritual counseling [] Bereavement support [] Provided bereavement packet [] Provided Bible/devotional materials [] Provided toy/stuffed animal, coloring book to patient or family member [] Provided Communion [] Anointing/[place] [] Salvation [] Completed spiritual assessment [] Other: Impact on Illness or Injury [] Angry [] Fearful [] Anxious [] Often cries [] Exhaustion [] Unable to work [] Unable to attend adventism [] Unable to walk/stand [] Unable to read [] Unable to drive [] Unable to eat/drink [] Unable to sleep [] Unable to be with family [] Patient intubated [] Other: Summary Time spent with patient
--- NOTE | 2023-10-15 10:38 | P.PN_ITS ---
Subjective 2 Subjective: Ministerio is unresponsive this morning. No change from yesterday. Medications: Reviewed: Yes Vitals/I&O/Wt Last Vital Signs Temp 97.3 F L 10/15/23 08:05 Pulse 151 H 10/15/23 08:05 Resp 28 H 10/15/23 08:05 BP 102/66 10/15/23 08:05 Pulse Ox 92 10/15/23 08:05 O2 Del Method Room Air 10/15/23 08:05 10/14/23 10/15/23 10/15/23 22:59 06:59 14:59 Intake Total 1498 / 3098 Output Total 2750 / 2750 1200 / 3950 Balance -1252 / 348 -1200 / -852 Weight last 48 hrs Weight 94.03 kg Weight 94.03 kg Weight 113.398 kg Physical Exam 2 Narrative: General exam unresponsive, tachycardic Neck is supple no lymphadenopathy thyromegaly Cardiovascular tachycardic, regular, no murmur Lungs clear but with diminished breath sounds bilaterally Abdomen a few bowel sounds. No obvious organomegaly. Scar noted exam Laws Extremities trace edema. No cyanosis or clubbing Neuro: No purposeful response to sternal rub Urinary Catheter Management: Laws: Cath Placed During This Visit: yes Reason for Continuing Indwelling Catheter: Hospice/Comfort/Palliative Care Urinary Catheter Date of Insertion: 10/14/23 Urinary Catheter Time of Insertion: 13:00 Data 10/14/23 10:13 10/14/23 10:13 A&P Assessment and plan (1) Gastrointestinal bleeding: Patient presents with GI bleeding, perhaps going on since Saturday. He has not had a prior GI bleed CT scan suggests possible mass. Cannot completely rule out esophageal varices, gastric varices, etc. Received 2 units of blood on October 14 He has since been made comfort. No further blood work has been obtained. Medications have been stopped. Fluids have been stopped. wants comfort only. Originally she indicated that she would like him home on hospice. She now reports she does not believe she is able to handle this at home and wants to hear other options. Discharge planning will be reviewing with her. No change in current orders. Appears to be comfortable. (2) Acute blood loss anemia: See above (3) Acute kidney injury: See above (4) Hypovolemic shock: See above (5) Transaminitis: See above (6) Thrombocytopenia: See above (7) Cirrhosis: See above (8) Dementia: Patient apparently has underlying history of dementia, occasionally with behaviors. (9) Acute encephalopathy: Changed to comfort measures Plan Other medical problems as noted in past medical history Allow natural . On comfort Attestations 2 Medical Necessity Statement*: Awaiting placement options Diagnoses Gastrointestinal bleeding K92.2 Acute blood loss anemia D62 Acute kidney injury N17.9 Hypovolemic shock R57.1 Transaminitis R74.01 Thrombocytopenia D69.6 Cirrhosis K74.60 Dementia F03.90 Acute encephalopathy G93.40 Time Spent (min) 29
[2023-10-15 10:57] VITALS: BP 131/69; PULSE 153; RESP 24; TEMP 36.4; O2SAT 90
[2023-10-15 22:00] VITALS: BP 136/78; PULSE 118; RESP 30; TEMP 36.8; O2SAT 88
[2023-10-15] MEDS: atropine 1% op soln 2 mL Btl 3 DROP SUBLINGUAL (23:58)
[2023-10-16] MEDS: morphine 4 mg/mL SDV 1 mL IVP ×2 (00:02→02:50)
--- NOTE | 2023-10-16 06:53 | PC.NURSE ---
MTS and Saving Site released due to pt age.
--- NOTE | 2023-10-16 06:55 | PC.NURSE ---
At approximately 0610 patient went asystole on the hospital monitor. Patient care nurse and this nurse both auscultated patients heart for a minute each. No heart sound auscultated by either nurse. Dr Agudelo notified. TOD 06:11. Patients called and informed. requested for patient to be transferred to [facility]. Patient is not a candidate for [facility] or [facility] sites. central office operator supervisor will notify home.
--- NOTE | 2023-10-16 07:24 | PM.DDS ---
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 Hemoglobin was found significantly low and he was severely hypotensive. He was transfused, placed on norepinephrine, CT scans completed. 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 Discussions had been going on between the emergency department physician and , as well as myself and the and she elected to pull back on care making him comfort only. There was intention to send him home with hospice, but secondary to 's concerns of ability to care for him at home he was held in the hospital. He October 16 at around 6 10 in the morning. He appeared comfortable during his hospital stay. Additional Data Advance directives?: Yes Discharge Plan Discharge Patient Disposition: Condition: Stable Prescriptions: No Action lisinopril 10 mg tablet 10 mg PO DAILY magnesium oxide 400 mg magnesium capsule 400 mg PO DAILY multivitamin Tablet 1 tab PO DAILY PreserVision AREDS [id number] capsule 1 cap PO DAILY Levemir U-100 Insulin 100 unit/mL solution See Rx Instructions .ROUTE .COMPLEX Rx Instructions: 42 units subcutaneously in the morning and 32 units in the evening. (DME) insulin syringe-needle U-100 [TRUEplus Insulin] 0.5 mL 31 gauge x 5/16 syringe See Rx Instructions .ROUTE .MEDSUPPLY Qty: 10 Rx Instructions: As directed metformin 500 mg tablet 1,000 mg PO BID lovastatin 20 mg tablet 20 mg PO QPM Referrals: Raymon Tomlinson FNP [Primary Care Provider] - Patient Instructions: Altered Mental Status (ED), Opioid Safety Probable Cause of Probable cause of : Cardiac arrest DS Attestations Time Spent in /Discharge Care*: greater than 30 min Quality - AMI: AMI present?: No Quality - Stroke: CVA present?: No Quality - VTE: VTE present?: No Coding Level of Care Code Acute Code for [facility] Fwd Diagnoses Gastrointestinal bleeding K92.2 Acute blood loss anemia D62 Acute kidney injury N17.9 Hypovolemic shock R57.1 Transaminitis R74.01 Thrombocytopenia D69.6 Cirrhosis K74.60 Dementia F03.90 Acute encephalopathy G93.40
== END 2023-10-16 11:09 | disposition expired | DRG 378 ==
LOC: ER 10:58 → ER IP 12:33 → MEDSURG 18:37
PROVIDERS: Admitting Provider Internal Medicine; Emergency Provider Family Medicine; PCP Nurse Practitioner; Visit Provider Internal Medicine
DX: K92.2 Gastrointestinal hemorrhage, unspecified (principal); D62 Acute posthemorrhagic anemia; E87.20 Acidosis, unspecified; N17.9 Acute kidney failure, unspecified; G93.40 Encephalopathy, unspecified; F03.C18 Unspecified dementia, severe, with other behavioral disturbance; R57.1 Hypovolemic shock; Z51.5 Encounter for palliative care; Z66 Do not resuscitate; R09.02 Hypoxemia; E78.5 Hyperlipidemia, unspecified; I10 Essential (primary) hypertension; E11.42 Type 2 diabetes mellitus with diabetic polyneuropathy; Z87.891 Personal history of nicotine dependence; D69.6 Thrombocytopenia, unspecified; K74.60 Unspecified cirrhosis of liver
CPT/HCPCS: 36415; 36416; 36430; 36556; 36600; 51702; 70450; 71045; 74177; 80051; 80053; 81001; 82009; 82140; 82330; 82805; 82962; 83605; 85025; 85384; 85610; 86850; 86900; 86920; 87040; 87635; 87804; 93005; 96365; 96366; 96367; 96375; 99291; C1751; C9113; J1956; J2270; J2354; J2543; J7030; P9016; P9040; Q9967